=== PATIENT | male | born 1995 | race Caucasian/White ===

== ENCOUNTER 2021-05-30 19:58 | Emergency (ER) | payer SELFPAY ==
[~2021-05-30] VITALS: Ht 170.1 cm; Wt 74.3 kg
[2021-05-30 20:03] VITALS: BP 138/66
--- NOTE | 2021-05-30 20:08 | ED General ---
General Stated Complaint: TROUBLE BREATHING/CHEST TIGHTNESS History of Present Illness Date Seen by Provider: May 30, 2021 Time Seen by Provider: 20:08 Initial Comments 25-year-old male presents with some chest tightness and some maybe mild trouble breathing. Patient is very anxious. Patient just arrived in [facility] from [place]. Patient has a history of asthma and forgot his nebulizer and his worried that he might be getting an asthma attack. He does not complain of any wheezing. Patient does have handheld inhaler inhalers. He reports no fevers chills cough. He was recently tested negative for Covid and has vaccine. Allergies and Home Medications Allergies Coded Allergies: No Known Drug Allergies (Unverified , 05/30/21) Patient Home Medication List Home Medication List Reviewed: Yes Review of Systems Review of Systems Constitutional: No chills, No fever Respiratory: see HPI Cardiovascular: No chest pain, No palpitations Gastrointestinal: no symptoms reported Genitourinary: no symptoms reported Musculoskeletal: no symptoms reported Skin: no symptoms reported Psychiatric/Neurological: No Symptoms Reported Hematologic/Lymphatic: No Symptoms Reported Physical Exam Vital Signs Capillary Refill : Height, Weight, BMI Height: '" Weight: lbs. oz. kg; BMI Method: General Appearance: Anxious HEENT: PERRL/EOMI Neck: Non Tender Respiratory: Chest Non Tender, Lungs Clear, Normal Breath Sounds, No Accessory Muscle Use, No Respiratory Distress Cardiovascular: Regular Rate, Rhythm, No Edema Gastrointestinal: Non Tender, Soft Extremity: Normal Capillary Refill, Normal Inspection Neurologic/Psychiatric: Alert, Oriented x3, No Motor/Sensory Deficits, Normal Mood/Affect, [employer] principal II-XII Norm as Tested Progress/Results/Core Measures Suspected Sepsis SIRS Temperature: Pulse: Respiratory Rate: Blood Pressure / Mean: Results/Orders Vital Signs/I&O Capillary Refill : Progress Note : Progress Note Patient with clear lung sounds and no obvious signs of asthma attack. Patient is extremely nervous and I think there is quite a bit of anxiety contributing to his symptoms. However I did teach him how to use a spacer since he did not have one. I also gave him 10 of Decadron in case he is early an asthma attack since he states this is how he often feels early on. Patient is stable will be discharged home. Departure Impression Primary Impression: History of asthma Disposition: 01 HOME, SELF-CARE Condition: Stable Departure-Patient Inst. Referrals: NO,LOCAL PHYSICIAN (PCP/Family) Primary Care Physician Patient Instructions: Asthma in Adults, Avoiding Asthma Triggers Add. Discharge Instructions: Use your inhaler as needed Return to the ER if you develop increasingly short of breath or significant wheezing IMELDA ARNOLD DO May 30, 2021 20:08
[2021-05-31] MEDS ORDERED: PRD20T PO (23:29)
== END 2021-05-30 20:31 | disposition home or self-care (01) ==
LOC: ER FS 20:03
DX: J45.909 Unspecified asthma, uncomplicated (principal)
CPT/HCPCS: 99283

== ENCOUNTER 2021-05-31 23:10 | Emergency (ER) | payer SELFPAY ==
[2021-05-31] MEDS ORDERED: LORazepam 0.5 MG (ATIVAN) TABLET PO STA (23:23)
[2021-05-31] MEDS ORDERED: PRD20T PO (23:29)
--- NOTE | 2021-05-31 23:29 | ED Cough/URI ---
General Chief Complaint: Respiratory Problems Stated Complaint: CHEST PAIN Nursing Triage Note: Pt states he feels short of breath and feels like his chest is tight. Pt was seen in the ER last night and was given a steroid shot but states he still feels like he is having a hard time breathing Source: patient Exam Limitations: no limitations History of Present Illness Date Seen by Provider: May 31, 2021 Time Seen by Provider: 23:24 Initial Comments Patient is a 25-year-old male with history of asthma who presents with palpitations, shortness of breath and chest tightness. Patient was evaluated in the emergency department last night for asthma. He was given a dose of steroids and told to use in his failure. He is used his inhaler before arrival states he has a fast pounding heart rate and he still feels shortness of breath. On exam, the patient's is anxious. His lung sounds are clear his heart sounds are normal and his pulse was regular. Breathing is nonlabored. He has mild URI symptoms but his exam is otherwise normal. No other symptoms or complaints Timing/Duration: just prior to arrival Severity/Quality: mild Prior Episodes/Possible Cause: other Modifying Factors: Improves With Other Associated Symptoms: other Allergies and Home Medications Allergies Coded Allergies: No Known Drug Allergies (Unverified , 05/30/21) Patient Home Medication List Home Medication List Reviewed: Yes Review of Systems Review of Systems Constitutional: see HPI EENTM: see HPI Respiratory: see HPI Gastrointestinal: see HPI Genitourinary: see HPI Musculoskeletal: see HPI Skin: see HPI Psychiatric/Neurological: See HPI Hematologic/Lymphatic: See HPI Immunological/Allergic: see HPI Past [id number] Hx Patient Social History Tobacco Use?: Yes Use of E-Cig and/or Vaping dev: No Substance use?: No Alcohol Use?: No Pt feels they are or have been: No Physical Exam Vital Signs - First Documented 05/31/21 23:14 Pulse 86 Resp 18 B/P (MAP) 161/86 (111) Pulse Ox 98 O2 Delivery Room Air Capillary Refill : Less Than 3 Seconds Height: '" Weight: lbs. oz. kg; 25.00 BMI Method: General Appearance: WD/WN, no apparent distress, other (Anxious) Eyes: Bilateral Eye Normal Inspection, Bilateral Eye PERRL, Bilateral Eye EOMI HEENT: PERRL/EOMI, TMs normal, pharynx normal Neck: non-tender, full range of motion, supple Respiratory: chest non-tender, lungs clear, normal breath sounds, no respiratory distress, no accessory muscle use Cardiovascular: normal peripheral pulses, regular rate, rhythm, no edema Gastrointestinal: soft Extremities: normal range of motion, non-tender Neurologic/Psychiatric: barrel turner II-XII nml as tested, alert, normal mood/affect, oriented x 3 Skin: normal color Progress/Results/Core Measures Suspected Sepsis SIRS Temperature: Pulse: 86 Respiratory Rate: 18 Blood Pressure 161 /86 Mean: 111 Results/Orders Vital Signs/I&O 05/31/21 23:14 Pulse 86 Resp 18 B/P (MAP) 161/86 (111) Pulse Ox 98 O2 Delivery Room Air Capillary Refill : Less Than 3 Seconds Blood Pressure Mean: 111 Departure Communication (Admissions) Patient mild intermittent asthma with albuterol prior to ED arrival. Will prescribe prednisone. Symptoms are mild. Patient reassured Ativan and first dose of steroids given in the ED. Recommendations are continued therapeutic care with PCP follow-up. Impression Primary Impression: Mild intermittent asthma Additional Impression: Anxiety state Disposition: 01 HOME, SELF-CARE Condition: Stable Departure-Patient Inst. Decision time for Depature: 23:28 Referrals: NO,LOCAL PHYSICIAN (PCP/Family) Primary Care Physician Patient Instructions: Anxiety, Adult ED, Asthma in Adults Add. Discharge Instructions: Please use albuterol inhaler 1 to 2 puffs every 2-4 hours as needed. Take steroids as directed follow-up with your PCP for reevaluation if symptoms persist. Return to the ED if new or worsening symptoms All discharge instructions reviewed with patient and/or family. Voiced understanding. Scripts Prednisone (Prednisone) 20 Mg Tab 40 MG PO DAILY, #6 TAB 0 Refills Prov: KAREN PAULSON DO 05/31/21 KAREN PAULSON DO May 31, 2021 23:29
[2021-05-31] MEDS ORDERED: predniSONE 20 MG TAB PO ONE (23:30)
[2021-05-31 23:38] VITALS: BP 161/86
== END 2021-05-31 23:48 | disposition home or self-care (01) ==
LOC: EDUNIT# 23:10 → ER FS 23:13
DX: J45.20 Mild intermittent asthma, uncomplicated (principal); F41.9 Anxiety disorder, unspecified
CPT/HCPCS: 99283

== ENCOUNTER 2021-06-03 00:12 | Emergency (ER) | payer SELFPAY ==
[~2021-06-03] VITALS: Ht 170 cm; Wt 74.7 kg
[~2021-06-03 00:12] MED LIST: PRD20T PO
[2021-06-03 00:21] VITALS: BP 146/90
[2021-06-03] MEDS ORDERED: LORazepam 0.5 MG (ATIVAN) TABLET PO STA (00:28)
[2021-06-03] MEDS ORDERED: LORA-407 PO (01:01)
--- NOTE | 2021-06-03 01:02 | ED General ---
General Stated Complaint: CHEST TIGHTNESS Source of Information: Patient History of Present Illness Date Seen by Provider: Jun 03, 2021 Time Seen by Provider: 00:15 Initial Comments Patient is a 25-year-old male with history of asthma and anxiety who presents with palpitations chest pain and racing thoughts with concern with feelings of impending doom this evening upon returning to bed. Patient's been evaluated twice in the emergency department for same was recently by this provider. His symptoms are unchanged from previous examination. No other symptoms or complaints. Timing/Duration: 1 Hour Severity: Mild Modifying Factors: improves with Other Associated Systoms: Other Allergies and Home Medications Allergies Coded Allergies: No Known Drug Allergies (Unverified , 05/30/21) Home Medications Prednisone 20 Mg Tab, 40 MG PO DAILY Prescribed by: KAREN PAULSON on 05/31/21 9810 Patient Home Medication List Home Medication List Reviewed: Yes Review of Systems Review of Systems Constitutional: see HPI EENTM: see HPI Respiratory: see HPI Cardiovascular: see HPI Gastrointestinal: see HPI Genitourinary: see HPI Musculoskeletal: see HPI Skin: see HPI Psychiatric/Neurological: See HPI Immunological/Allergic: see HPI Physical Exam Vital Signs Capillary Refill : Height, Weight, BMI Height: '" Weight: lbs. oz. kg; 25.00 BMI Method: General Appearance: No Apparent Distress, Anxious Eyes: Bilateral Eye Normal Inspection, Bilateral Eye PERRL HEENT: PERRL/EOMI, Normal ENT Inspection, Pharynx Normal Respiratory: Chest Non Tender, Lungs Clear Cardiovascular: Regular Rate, Rhythm Extremity: No Calf Tenderness Neurologic/Psychiatric: Alert, Oriented x3 Skin: Normal Color, Warm/Dry Focused Exam Sepsis Stage: Ruled Out Progress/Results/Core Measures Suspected Sepsis SIRS Temperature: Pulse: Respiratory Rate: Blood Pressure / Mean: Results/Orders My Orders Orders - KAREN PAULSON DO Lorazepam Tablet (Ativan Tablet) (06/03/21 00:28) Vital Signs/I&O Capillary Refill : Departure Communication (Admissions) Ativan given. Recommendations are for continued outpatient treatment with PCP follow-up. Impression Primary Impression: Anxiety state Disposition: HOME, SELF-CARE Condition: Stable Departure-Patient Inst. Decision time for Depature: 01:00 Referrals: NO,LOCAL PHYSICIAN (PCP/Family) Primary Care Physician Patient Instructions: Anxiety, Adult (DC) Add. Discharge Instructions: Please fill prescription and take anxiety medication prior to bedtime. Follow- up with your PCP in 2 to 3 days for reevaluation. Scripts Lorazepam (Ativan) 2 Mg Tablet 2 MG PO Q6H for 7 Days, #10 TAB Prov: KAREN PAULSON DO 06/03/21 KAREN PAULSON DO Jun 03, 2021 01:02
== END 2021-06-03 01:08 | disposition home or self-care (01) ==
LOC: EDUNIT# 00:12 → ER FS 00:14
DX: F41.9 Anxiety disorder, unspecified (principal); J45.909 Unspecified asthma, uncomplicated; Z79.52 Long term (current) use of systemic steroids
CPT/HCPCS: 99284